=== PATIENT | male | born 1975 | race Caucasian/White ===

== ENCOUNTER 2016-12-24 20:25 | Emergency (ER) | payer SELFPAY ==
[2016-12-24 21:43] VITALS: BMI 22.1
[2016-12-24 22:02] LABS: AUTOMATED EOSINOPHIL 1.2 % (0-5); AUTOMATED LYMPH 22.4 % (17-44); AUTOMATED MONOCYTE 11.5 % (3-10); AUTOMATED NEUTROPHIL 63.9 % (45-76); MPV 9.1 fL (7.4-10.4)
[2016-12-24 22:13] LABS: BLOOD UREA NITROGEN 13 MG/DL (9-20); CALCULATED OSMOLALITY 273 MOs/Kg (270-290); CHLORIDE 107 mEq/L (98-107); GLUCOSE 102 mg/dL (70-99); SODIUM LEVEL 142 mEq/L (137-146); TOTAL PROTEIN 6.9 G/DL (6.3-8.2)
[2016-12-24 22:27] LABS: LEUKOCYTES/URINE NEG (NEGATIVE); NITRITE/URINE NEG (NEGATIVE); RBC/URINE 0-2 (0-2); URINE OCCULT BLOOD NEG (NEG/TRACE); WBC/URINE 0-2 (0-2)
[2016-12-24 23:22] VITALS: PULSE 70; TEMP 98.3
[2016-12-24] MEDS ORDERED: DIAZEPAM 5 MG TAB PO ONE (23:37)
--- NOTE | 2016-12-24 23:47 | EDPRACDOC ---
- General Information Chief Complaint: Male Urogenital Problems Stated Complaint: RIGHT FLANK PAIN Time Seen by Provider: 12/24/16 23:17 Information Source: Patient Mode Of Arrival: Car Home Medications: Home Medications Melatonin/Pyridoxine [Melatonin 3 mg Tablet] 2 tab PO QHS 05/06/16 Sertraline HCl 50 mg PO DAILY 05/06/16 Topiramate [Topamax] 50 mg PO BID 05/06/16 Buspirone HCl [Buspar] 5 - 10 mg PO BID 06/29/16 Trazodone HCl 150 - 200 mg PO QHS 06/29/16 Diazepam [Valium] 5 mg PO TID #10 tablet 12/25/16 Ibuprofen Tablet [Motrin] 800 mg PO TID PRN #30 tab 12/25/16 Allergies/Adverse Reactions: Allergies Allergy/AdvReac Type Severity Reaction Status Date / Time hydrocodone [Hydrocodone] AdvReac Unknown Rash-Genera Verified 12/24/16 21:43 lized - History of Present Illness Onset: THIS AM HPI: C/o right lower back pain, COONEY and nausea, starting last night. Back pain is intermittent, sharp, worse with movement, better with rest. Denies abdo pain, urinary sx, fever, vomiting, groin pain, change in BM. Hx of kidney stones. Last stone passed in May 2016 at [place]. Med hx = none. Surgical hx = none. Pain Location: Reports: Right, Lumbar Pain Radiates To: Reports: None Circumstances: Reports: Unknown Relevant History: Reports: Urolithiasis Pain Severity: Reports: Moderate Pain Quality: Reports: Sharp Worsened By: Reports: Movement, Twisting, Walking Associated Signs and Symptoms: Reports: None ED Past Medical History - History Reviewed Yes Nurses notes reviewed and agree except as marked - Patient Medical History Psychological History: Reports: Depression, Anxiety, Bipolar Disorder - Social Medical History Smoking Status: Heavy tobacco smoker (5 or more cigarettes/day or daily pipe/ cigar) EDM Review of Systems - Review of Systems ROS Negative Except as Marked: Yes All systems reviewed and were negative except as marked Musculoskeletal: Back (right lower back pain) - Physical Exam Constitutional: Alert, Distress Oriented to: Time, Person, Place Last recorded Vital Signs: Last Vital Signs Temp 98.3 F 12/24/16 23:20 Pulse 70 12/24/16 23:20 Resp 18 12/24/16 23:20 BP 116/73 12/24/16 23:20 Pulse Ox 94 12/24/16 23:20 Oxygen Pulse Oxygen Saturation 94 O2 Device Room Air Oxygen Flow Rate Fraction of Inspired Oxygen ( FIO2) - HEENT Head: Normal Eye Exam: negative: Conjunctival Injection, Scleral Icterus Oropharynx: negative: Drooling TMJ: Normal Nose: No Symptoms Reported Neck: Normal - Respiratory/Cardiovascular Respiratory: Normal - CTA Cardiovascular: Normal - GI Auscultation: Normal Palpation: Normal Tenderness: Non tender - Musculoskeletal Back: Other (right paraspinal tenderness, and where pain is maximum. No pain with palpation of kidney or flanks.). negative: CVA Tenderness - Integumentary Skin: Normal - Neurologic Mood Description: Normal Thought: Coherent Perception: Normal ED Back Exam - Neurologic Motor Deficit: None - Musculoskeletal Cervical: Normal Thoracic: Normal Lumbar: Tender (right paraspinal), Spasm Midline: Normal Paraspinous: Tender (right), Spasm Straight Leg Raise: Negative Pelvis: Normal - Results 12/24/16 21:47 12/24/16 21:47 WBC 11.3 xk/uL (3.8-10.8) H 12/24/16 21:47 RBC 5.49 xM/uL (4.70-6.10) 12/24/16 21:47 Hgb 16.9 g/dL (14.0-18.0) 12/24/16 21:47 Hct 49.0 % (42-52) 12/24/16 21:47 MCV 89 fL (80-94) 12/24/16 21:47 MCH 30.7 pg (27-32) 12/24/16 21:47 MCHC 34.4 g/dl (33-36) 12/24/16 21:47 RDW 13.5 % (11.5-14.5) 12/24/16 21:47 Plt Count 252 xk/uL (130-400) 12/24/16 21:47 MPV 9.1 fL (7.4-10.4) 12/24/16 21:47 Neut % (Auto) 63.9 % (45-76) 12/24/16 21:47 Lymph % (Auto) 22.4 % (17-44) 12/24/16 21:47 Bartholomew % (Auto) 11.5 % (3-10) H 12/24/16 21:47 Eos % (Auto) 1.2 % (0-5) 12/24/16 21:47 Baso % (Auto) 1.0 % (0-2) 12/24/16 21:47 Absolute Neuts (auto) 7.12 xk/uL (1.7-8.2) 12/24/16 21:47 Absolute Lymphs (auto) 2.49 xk/uL (0.65-4.75) 12/24/16 21:47 Sodium 142 mEq/L (137-146) 12/24/16 21:47 Potassium 4.1 mEq/L (3.5-5.1) 12/24/16 21:47 Chloride 107 mEq/L (98-107) 12/24/16 21:47 Carbon Dioxide 20 mMOL/L (22-33) L 12/24/16 21:47 Anion Gap 19 mEq/L (8-16) H 12/24/16 21:47 BUN 13 MG/DL (9-20) 12/24/16 21:47 Creatinine 1.00 MG/DL (0.66-1.25) 12/24/16 21:47 Estimated GFR (MDRD) > 60 mL/min (>=60) 12/24/16 21:47 Glucose 102 mg/dL (70-99) H 12/24/16 21:47 Calculated Osmolality 273 MOs/Kg (270-290) 12/24/16 21:47 Calcium 9.0 MG/DL (8.4-10.2) 12/24/16 21:47 Total Bilirubin 0.8 MG/DL (0.2-1.3) 12/24/16 21:47 AST 23 IU/L (17-59) 12/24/16 21:47 ALT 33 IU/L (21-72) 12/24/16 21:47 Alkaline Phosphatase 70 IU/L (38-126) 12/24/16 21:47 Total Protein 6.9 G/DL (6.3-8.2) 12/24/16 21:47 Albumin 4.4 G/DL (3.5-5.0) 12/24/16 21:47 Urine Color Pale yellow 12/24/16 21:47 Urine Clarity Clear 12/24/16 21:47 Urine pH 5.0 (5.0-8.0) 12/24/16 21:47 Ur Specific [place] 1.005 (1.003-1.035) 12/24/16 21:47 Urine Protein Neg (NEG/TRACE) 12/24/16 21:47 Urine Glucose (UA) Neg (NEGATIVE) 12/24/16 21:47 Urine Ketones Neg (NEGATIVE) 12/24/16 21:47 Urine Occult Blood Neg (NEG/TRACE) 12/24/16 21:47 Urine Nitrite Neg (NEGATIVE) 12/24/16 21:47 Urine Bilirubin Neg (NEGATIVE) 12/24/16 21:47 Urine Urobilinogen <2.0 MG/DL (0-1) 12/24/16 21:47 Ur Leukocyte Esterase Neg (NEGATIVE) 12/24/16 21:47 Urine RBC 0-2 (0-2) 12/24/16 21:47 Urine WBC 0-2 (0-2) 12/24/16 21:47 Urine Bacteria Few (NEG/FEW) 12/24/16 21:47 Lab Results 12/24/16 12/24/16 12/24/16 21:47 21:47 21:47 WBC 11.3 H RBC 5.49 Hgb 16.9 Hct 49.0 MCV 89 MCH 30.7 MCHC 34.4 RDW 13.5 Plt Count 252 MPV 9.1 Neut % (Auto) 63.9 Lymph % (Auto) 22.4 Bartholomew % (Auto) 11.5 H Eos % (Auto) 1.2 Baso % (Auto) 1.0 Absolute Neuts (auto) 7.12 Absolute Lymphs (auto) 2.49 Sodium 142 Potassium 4.1 Chloride 107 Carbon Dioxide 20 L Anion Gap 19 H BUN 13 Creatinine 1.00 Estimated GFR (MDRD) > 60 Glucose 102 H Calculated Osmolality 273 Calcium 9.0 Total Bilirubin 0.8 AST 23 ALT 33 Alkaline Phosphatase 70 Total Protein 6.9 Albumin 4.4 Urine Color Pale yellow Urine Clarity Clear Urine pH 5.0 Ur Specific [place] 1.005 Urine Protein Neg Urine Glucose (UA) Neg Urine Ketones Neg Urine Occult Blood Neg Urine Nitrite Neg Urine Bilirubin Neg Urine Urobilinogen <2.0 Ur Leukocyte Esterase Neg Urine RBC 0-2 Urine WBC 0-2 Urine Bacteria Few Decision Time to Discharge: 00:44 - Departure Condition: Stable Final Diagnosis: Muscle spasm Instructions: Muscle Spasm (ED) Education/Counseling Given To: Patient Education/Counseling Given Regarding: Diagnosis, Treatment, Prognosis, Follow Up Referrals: None,No Provider [Primary Care Provider] - One Week Prescriptions: New Diazepam [Valium] 5 mg PO TID #10 tablet Ibuprofen Tablet [Motrin] 800 mg PO TID PRN #30 tab PRN Reason: Pain No Action Topiramate [Topamax] 50 mg PO BID Sertraline HCl 50 mg PO DAILY Melatonin/Pyridoxine [Melatonin 3 mg Tablet] 2 tab PO QHS Trazodone HCl 150 - 200 mg PO QHS Buspirone HCl [Buspar] 5 - 10 mg PO BID Forms: Excuse Note Additional Instructions: Follow up with primary care if muscle spasm does not go away. Return to ED for any new or worsening symptoms.
[2016-12-25 00:56] VITALS: BP 121/68
== END 2016-12-25 00:51 | disposition home or self-care (01) ==
LOC: ED 20:25
DX: M62.838 Other muscle spasm (principal)
CPT/HCPCS: 36415; 80053; 81001; 85025; 99283; J3490